=== PATIENT | male | born 1965 | race Caucasian/White ===

== ENCOUNTER 2020-04-19 13:29 | Inpatient (IN) | payer OTHER ==
[~2020-04-19] VITALS: Ht 177.8 cm; Wt 100.5 kg
[2020-04-19 15:24] VITALS: BP 162/93
--- NOTE | 2020-04-19 15:24 | NUR ---
54 year old MALE admitted to room # 407 BED 2 for stabilization. Reports an addiction to COCAINE AND CRACK last used 18 hours prior to admission. Compliant with admission procedure. Patient denies any anxiety, but is unable to sit still, taps toes to floor continuously, looks about room, unable to focus eyes on nurse during interview. See assessment forms for additional information about patient status. YARY ALCARAZN, RN
--- NOTE | 2020-04-19 15:44 | NUR ---
PATIENT MEETS [facility]. CIWA=17, CINA=15. PATIENT IS GOING TO FOLLOW UP WITH [facility] FOR HIS AFTERCARE PLAN. CAITLYN CASTRO B.A. CHILDCARE AIDE
[2020-04-19 16:00] VITALS: BP 162/90
[2020-04-19] MEDS ORDERED: Nicorette Gum4 MG PO (16:10)
[2020-04-19] MEDS ORDERED: COZAAR50 M1 PO (16:10)
[2020-04-19] MEDS ORDERED: NOVOLIN R100 UNIT/1 SQ (16:11)
[2020-04-19] MEDS ORDERED: METFORMIN HYD1000 MG PO (16:12)
[2020-04-19 16:52] LABS: BASO % 0.4 % (0.0-1.0); EOS # 0.1 10*3/uL (0.0-0.4); HEMATOCRIT 46.1 % (42.0-52.0); LYMPH # 3.5 10*3/uL (1.3-4.4); LYMPH % 44.7 % (27.0-41.0); MEAN CELL VOLUME 86.3 fl (80.0-94.0); MEAN CORPUSCULAR HGB 28.5 pg (27.0-31.0); MEAN PLATELET VOLUME 10.9 fl (9.6-12.3); MONO # 0.5 10*3/uL (0.1-1.0); MONO % 6.5 % (3.0-9.0); NEUT # 3.7 10*3/uL (2.3-7.9); NEUT % 47.3 % (47.0-73.0); PLATELET COUNT AUTOMATED 177 10*3/uL (130-400); RED BLOOD COUNT 5.34 10*6/uL (4.50-5.90); RED CELL DISTRI WIDTH 12.5 % (0-14.5); WHITE BLOOD COUNT 7.8 10*3/uL (4.8-10.8)
[2020-04-19 17:01] LABS: INTERNATIONAL NORM RATIO 1.1 (2.0-3.5)
[2020-04-19 17:12] LABS: ALBUMIN 3.9 gm/dl (3.1-4.5); ALKALINE PHOSPHATASE 76 U/L (45-117); BUN 11 mg/dl (7-24); CHLORIDE 103 mmol/L (98-107); CREATININE 0.82 mg/dL (0.70-1.30); POTASSIUM 3.3 mmol/L (3.5-5.1); SGOT/AST 18 IU/L (3-35); SGPT/ALT 34 U/L (12-78); SODIUM 135 mmol/L (136-145); TOTAL PROTEIN 7.3 gm/dL (6.4-8.2)
[2020-04-19 17:14] LABS: ETHYL ALCOHOL < 3.0 mg/dl (<3)
[2020-04-19 17:34] LABS: BILIRUBIN Negative (Negative); BLOOD Negative (Negative); CLARITY Clear (Clear); COLOR Yellow (Yellow); GLUCOSE 1+ (Negative); KETONE 1+ (Negative); LEUKO ESTERASE Negative (Negative); NITRITE Negative (Negative); PH 6.5 (4.5-8.0); SPECIFIC GRAVITY 1.015 (1.001-1.030)
[2020-04-19 17:43] LABS: URINE AMPHETAMINES > 1000 (1000ng/ml); URINE BARBITURATES < 200 (200ng/ml); URINE BENZODIAZEPINES < 200 (200ng/ml); URINE CANNABINOIDS (THC) < 50 (50ng/ml); URINE COCAINE > 300 (300ng/ml); URINE METHADONE < 300 (300ng/ml); URINE OPIATES < 300 (300ng/ml)
[2020-04-19 17:46] LABS: URINE PHENCYCLIDINE < 25 (25ng/ml)
[2020-04-19 17:47] LABS: CALCIUM OXALATE CRYSTALS TRACE; WBC 0-2 wbc/hpf (0-5)
[2020-04-19 17:48] LABS: MUCOUS TRACE
--- NOTE | 2020-04-19 19:19 | NUR ---
RECIEVED REPORT FROM PREVIOUS RN.
--- NOTE | 2020-04-19 19:28 | NUR ---
ASSUMED CARE OF PATIENT. PATIENT IS AAOX3 RESTING IN BED WITH EASY AND REGULAR RESPERS ON ROOM AIR. ASSESSMENT IS COMPLETE WITH NO C/O OR S/S OF DISTRESS NOTED AT THIS TIME. PRN NICOTINE GUM PROVIDED PER PATIENT REQUEST. BED IS LOW, LOCKED, AND CALL LIGHT IS WITHIN REACH. WILL CONTNINUE TO MONITOR, SEE INTERVENTIONS.
[2020-04-19 20:00] VITALS: BP 142/78
[2020-04-20] VITALS: BP 149/86
--- NOTE | 2020-04-20 07:00 | NUR ---
ARRIVED ON SHIFT,REPORT RECEIVED FROM OFFGOING NURSE, ASSUMED CARE OF PATIENT.
--- NOTE | 2020-04-20 07:30 | NUR ---
INTRODUCED SELF YE PATIENT, BED IN LOW POSITION, WHEEL LOCKS ENGAGED, SIDE RAILS UP X 2 FOR TURNING AND REPOSITIONING, CALL LIGHT WITHIN REACH, NO NEEDS VOICED AT THIS TIME, WHITE BOARD UPDATED.
--- NOTE | 2020-04-20 07:57 | NUR ---
Shift chart check completed.
[2020-04-20 12:00] VITALS: BP 127/77
--- NOTE | 2020-04-20 12:22 | NUR ---
[place] STAFF IN TO SEE PATIENT. [facility] WILL BE PROVIDING TRASNPORTATION FOR PATIENT ON FRIDAY, April POST DISCHARGE. CAITLYN CASTRO B.A. FABRIC SOURCER
[2020-04-20 16:00] VITALS: BP 104/74
--- NOTE | 2020-04-20 19:20 | NUR ---
REPORT OBTAINED FROM PREVIOUS RN. ASSUMED CARE OF PATIENT.
[2020-04-20 20:00] VITALS: BP 127/76
--- NOTE | 2020-04-20 21:00 | NUR ---
PATIENT IS RESTING IN BED, RESPERS EASY AND REGULAR. ASSESSMENT IS COMPLETE, WITH NO S/S OF DISTRESS NOTED AT THIS TIME. BED IS LOW, LOCKED, AND CALL LIGHT IS WITHIN REACH. BEDSIDE GLUCOSE 314. PATIENT REQUESTING ATIVAN TO HELP THEM SLEEP. FINE TREMORS NOTED. WILL CONTINUE TO MONITOR, SEE INTERVENTIONS.
--- NOTE | 2020-04-20 21:11 | NUR ---
PRN ATIVAN GIVEN FOR FINE TREMORS AND INSOMNIA. CALL LIGHT IS WITHIN REACH, WILL MONITOR EFFECT.
--- NOTE | 2020-04-20 23:24 | NUR ---
CHART CHECK COMPLETE.
[2020-04-21] VITALS: BP 120/70
--- NOTE | 2020-04-21 03:31 | NUR ---
PATIENT IS AWAKE. 0400 LIBRIUM GIVEN. PATIENT REQUESTING SLEEPING MEDICATION. TREMORS NOTED TO HANDS. PRN ATIVAN GIVEN. PATIENT STATED "WHEN I GET THAT ATIVAN STUFF I SLEEP REALLY GOOD. LAST NIGHT WHEN I GOT IT, IT WAS THE FIRST DREAM I HAD IN MONTHS THAT WASNT ABOUT CRACK." INFORMED PATIENT THAT MEDICATION IS ONLY TO BE USED FOR DT'S. UNDERSTANDING VERBALIZED. CALL LIGHT IS WITHIN REACH, WILL MONITOR EFFECT.
--- NOTE | 2020-04-21 04:05 | NUR ---
PATIENT REQUESTING SLEEPING MEDICATIONS. PRN TRAZADONE GIVEN. WILL MONITOR EFFECT. CALL LIGHT IS WITHIN REACH.
--- NOTE | 2020-04-21 04:20 | NUR ---
PATIENT SEEMS DISORIENTED ASKING QUESTIONS IN REGARDS TO ATIVAN. UPDATED PATIENT ON EVENTS OF TONIGHT AND REORIENTED. CALL LIGHT IS WITHIN REACH, WILL CONTINUE TO MONITOR.
--- NOTE | 2020-04-21 05:01 | NUR ---
SLEEPING. RESPERS EASY AND REGULAR. CALL LIGHT IS WITHIN REACH.
--- NOTE | 2020-04-21 07:00 | NUR ---
ARRIVED ON SHIFT, REPORT RECEIVED FROM OFFGOING NURSE, ASSUMED CARE OF PATIENT.
--- NOTE | 2020-04-21 07:15 | NUR ---
INTRODUCED SELF TO PATIENT, BED IN LOW POSITION, WITH WHEEL LOCKS ENGAGED, SIDE RAILS UP X 2 FOR TURNING AND REPOSITIONING, CALL LIGHT WITHIN REACH, NO NEEDS VOICED AT THIS TIME, WHITE BOARD UPDATED.
[2020-04-21 08:00] VITALS: BP 102/60
--- NOTE | 2020-04-21 08:00 | NUR ---
Shift chart check completed.
[2020-04-21 12:00] VITALS: BP 110/65
--- NOTE | 2020-04-21 14:59 | NUR ---
MACHINE I COREMAKER IN TO SEE PATIENT. PATIENT STATED HE HAD A COURT DATE TODAY AND WOULD LIKE TO HAVE SOMETHING FAXED TO THE COURTS FOR PROOF THAT HE HAS BEEN IN OUR FACILITY. HE ALSO WANTED THEM TO BE NOTIFIED OF HIM BEING UNAVAILABLE FOR THE NEXT 30DAYS. FLYNN SPOKE WITH JIMMY SHELDON. FLYNN PROVIDED HER WITH FAX NUMBER [phone]. THE COURTS PHONE NUMBER IS [phone]. FOR TICKET #[id number].
[2020-04-21 16:00] VITALS: BP 123/75
--- NOTE | 2020-04-21 16:28 | NUR ---
[place] STAFF IN TO SEE PATIENT. PATIENT WILL BE PICKED UP TOMORROW POST DISCHARGE TO [facility]. PATIENT AGREES AND UNDERSTANDS HIS AFTERCARE PLAN. CAITLYN CASTRO B.A. BROACHING MACHINE OPERATOR
[2020-04-21 20:00] VITALS: BP 112/70
--- NOTE | 2020-04-21 20:00 | NUR ---
Neurological: awake,alert,oriented Respiratory: cough Breath sounds: clear Cough: hacking Cardiovascular: no problem Gastrointestinal: soft Genito/Urinary: no problem Musculoskeketal: AMBULATORY STANISLAV MUSE
[2020-04-22] VITALS: BP 105/64
--- NOTE | 2020-04-22 | NUR ---
RESTING QUIETLY IN BED WITH EYES CLOSED. RESPONDS TO VERBAL STIMULI. NO C/O VOICED. CALL IN REACH.
[2020-04-22 04:00] VITALS: BP 108/68
[2020-04-22 05:58] LABS: CREATININE 0.93 mg/dL (0.70-1.30)
[2020-04-22 06:01] LABS: BASO % 0.5 % (0.0-1.0); EOS # 0.2 10*3/uL (0.0-0.4); EOS % 2.1 % (1.0-4.0); HEMATOCRIT 46.6 % (42.0-52.0); LYMPH # 3.6 10*3/uL (1.3-4.4); LYMPH % 43.5 % (27.0-41.0); MEAN CORPUSCULAR HGB 29.2 pg (27.0-31.0); MEAN CORPUSCULAR HGB CONC 32.4 g/dl (33.0-37.0); MEAN PLATELET VOLUME 11.9 fl (9.6-12.3); MONO # 0.5 10*3/uL (0.1-1.0); MONO % 6.3 % (3.0-9.0); NEUT # 3.9 10*3/uL (2.3-7.9); NEUT % 47.4 % (47.0-73.0); PLATELET COUNT AUTOMATED 168 10*3/uL (130-400); RED BLOOD COUNT 5.18 10*6/uL (4.50-5.90); RED CELL DISTRI WIDTH 12.7 % (0-14.5); WHITE BLOOD COUNT 8.3 10*3/uL (4.8-10.8)
[2020-04-22 08:00] VITALS: BP 117/64
--- NOTE | 2020-04-22 10:59 | NUR ---
PATIENT DISCHARGED TO [facility].
== END 2020-04-22 11:00 | DRG 774 ==
LOC: 4E 13:29
PROVIDERS: Student in an Organized Health Care Education/Training Program; ADMIT Family Medicine; ATTEND Family Medicine
DX: F10.230 Alcohol dependence with withdrawal, uncomplicated (principal); F41.9 Anxiety disorder, unspecified; E87.1 Hypo-osmolality and hyponatremia; F14.10 Cocaine abuse, uncomplicated; F19.90 Other psychoactive substance use, unspecified, uncomplicated; E66.9 Obesity, unspecified; F32.5 Major depressive disorder, single episode, in full remission; E87.6 Hypokalemia; E11.65 Type 2 diabetes mellitus with hyperglycemia; E83.51 Hypocalcemia; F17.210 Nicotine dependence, cigarettes, uncomplicated; Z20.828 Contact with and (suspected) exposure to other viral communicable diseases; Z71.6 Tobacco abuse counseling; Z84.1 Family history of disorders of kidney and ureter; Z82.49 Family history of ischemic heart disease and other diseases of the circulatory system; Z78.9 Other specified health status; Z68.31 Body mass index [BMI] 31.0-31.9, adult

== ENCOUNTER 2020-08-02 17:57 | Inpatient (IN) | payer OTHER ==
[~2020-08-02] VITALS: Ht 177.8 cm; Wt 96.6 kg
[~2020-08-02 17:57] MED LIST: COZAAR50 M1 PO; METFORMIN HYD1000 MG PO; NOVOLIN R100 UNIT/1 SQ; Nicorette Gum4 MG PO
[2020-08-02 18:10] VITALS: BP 145/81
[2020-08-02 18:56] LABS: BASO % 0.4 % (0.0-1.0); EOS % 0.3 % (1.0-4.0); HEMATOCRIT 49.1 % (42.0-52.0); LYMPH % 32.4 % (27.0-41.0); MEAN CELL VOLUME 87.2 fl (80.0-94.0); MEAN CORPUSCULAR HGB 28.8 pg (27.0-31.0); MONO # 0.4 10*3/uL (0.1-1.0); MONO % 4.5 % (3.0-9.0); NEUT # 5.7 10*3/uL (2.3-7.9); NEUT % 62.1 % (47.0-73.0); PLATELET COUNT AUTOMATED 186 10*3/uL (130-400); RED BLOOD COUNT 5.63 10*6/uL (4.50-5.90); WHITE BLOOD COUNT 9.2 10*3/uL (4.8-10.8)
[2020-08-02 19:04] LABS: BILIRUBIN Negative (Negative); BLOOD Negative (Negative); CLARITY Clear (Clear); COLOR Yellow (Yellow); GLUCOSE 3+ (Negative); KETONE 1+ (Negative); LEUKO ESTERASE Negative (Negative); NITRITE Negative (Negative); PH 6.5 (4.5-8.0); SPECIFIC GRAVITY >= 1.030 (1.001-1.030); UROBILINOGEN 0.2 E.U./dl (0.0-1.0)
[2020-08-02 19:08] LABS: URINE AMPHETAMINES < 1000 (1000ng/ml); URINE BARBITURATES < 200 (200ng/ml); URINE BENZODIAZEPINES < 200 (200ng/ml); URINE CANNABINOIDS (THC) < 50 (50ng/ml); URINE COCAINE > 300 (300ng/ml); URINE METHADONE < 300 (300ng/ml); URINE OPIATES < 300 (300ng/ml)
[2020-08-02 19:13] LABS: URINE PHENCYCLIDINE < 25 (25ng/ml)
[2020-08-02 19:14] LABS: ACT PARTIAL THROMBO TIME 25.2 SECONDS (20.0-32.1)
[2020-08-02 19:16] LABS: ALBUMIN 3.9 gm/dl (3.1-4.5); ALKALINE PHOSPHATASE 86 U/L (45-117); BUN 19 mg/dl (7-24); CHLORIDE 102 mmol/L (98-107); CREATININE 1.05 mg/dL (0.70-1.30); LIPASE 125 U/L (73-393); SGOT/AST 17 IU/L (3-35); SGPT/ALT 40 U/L (12-78); SODIUM 133 mmol/L (136-145); TOTAL PROTEIN 7.5 gm/dL (6.4-8.2)
[2020-08-02 19:17] LABS: ETHYL ALCOHOL < 3.0 mg/dl (<3); TROPONIN I < 0.015 ng/ml (<0.045)
[2020-08-02 19:18] LABS: BACTERIA TRACE; EPITHELIAL CELLS 0-2; RBC 0-2 rbc/hpf (0-2); WBC 0-2 wbc/hpf (0-5)
[2020-08-02 22:29] VITALS: BP 107/62
[2020-08-03] VITALS: BP 107/56
[2020-08-03] MEDS ORDERED: GLIMEPIRIDE4 M1 PO (02:53)
[2020-08-03 08:00] VITALS: BP 119/83
[2020-08-03 12:00] VITALS: BP 139/78
[2020-08-03 16:00] VITALS: BP 119/77
[2020-08-03 20:00] VITALS: BP 120/73
[2020-08-04] VITALS: BP 114/57
[2020-08-04 06:43] LABS: BASO % 0.6 % (0.0-1.0); EOS # 0.1 10*3/uL (0.0-0.4); EOS % 1.8 % (1.0-4.0); HEMATOCRIT 49.5 % (42.0-52.0); LYMPH # 2.9 10*3/uL (1.3-4.4); LYMPH % 43.4 % (27.0-41.0); MEAN CELL VOLUME 88.6 fl (80.0-94.0); MEAN CORPUSCULAR HGB 28.4 pg (27.0-31.0); MEAN CORPUSCULAR HGB CONC 32.1 g/dl (33.0-37.0); MEAN PLATELET VOLUME 11.2 fl (9.6-12.3); MONO # 0.5 10*3/uL (0.1-1.0); MONO % 6.8 % (3.0-9.0); NEUT # 3.2 10*3/uL (2.3-7.9); NEUT % 47.1 % (47.0-73.0); PLATELET COUNT AUTOMATED 170 10*3/uL (130-400); RED BLOOD COUNT 5.59 10*6/uL (4.50-5.90); RED CELL DISTRI WIDTH 11.9 % (0-14.5); WHITE BLOOD COUNT 6.8 10*3/uL (4.8-10.8)
[2020-08-04 06:56] LABS: BUN 18 mg/dl (7-24); CHLORIDE 110 mmol/L (98-107); CREATININE 0.85 mg/dL (0.70-1.30); POTASSIUM 3.9 mmol/L (3.5-5.1); SODIUM 140 mmol/L (136-145)
[2020-08-04 08:00] VITALS: BP 113/60
[2020-08-04 12:00] VITALS: BP 126/72
[2020-08-04 16:00] VITALS: BP 122/72
[2020-08-04 20:00] VITALS: BP 130/73
[2020-08-05] VITALS: BP 131/69
[2020-08-05 08:00] VITALS: BP 128/73
[2020-08-05] MEDS ORDERED: GLIMEPIRIDE4 M1 PO (11:36)
[2020-08-05] MEDS ORDERED: METFORMIN HYD1000 MG PO (11:36)
== END 2020-08-05 13:08 | disposition home or self-care (01) | DRG 774 ==
LOC: ED 17:57 → EDHOLD 18:33 → 5E 18:33
PROVIDERS: Emergency Medicine; Internal Medicine; ADMIT Family Medicine; ATTEND Family Medicine
DX: F10.230 Alcohol dependence with withdrawal, uncomplicated (principal); E87.2 Acidosis; E87.1 Hypo-osmolality and hyponatremia; F32.5 Major depressive disorder, single episode, in full remission; R00.0 Tachycardia, unspecified; R79.82 Elevated C-reactive protein (CRP); F41.9 Anxiety disorder, unspecified; E11.65 Type 2 diabetes mellitus with hyperglycemia; F14.13 Cocaine abuse, unspecified with withdrawal; E66.9 Obesity, unspecified; F17.210 Nicotine dependence, cigarettes, uncomplicated; E11.42 Type 2 diabetes mellitus with diabetic polyneuropathy; Z79.4 Long term (current) use of insulin; Z71.6 Tobacco abuse counseling; Z84.1 Family history of disorders of kidney and ureter; Z84.89 Family history of other specified conditions; Z68.30 Body mass index [BMI] 30.0-30.9, adult

== ENCOUNTER 2020-09-21 12:03 | Inpatient (IN) | payer OTHER ==
[~2020-09-21] VITALS: Ht 177.8 cm; Wt 99.5 kg
[~2020-09-21 12:03] MED LIST changes: +GLIMEPIRIDE4 M1 PO
[2020-09-21 12:40] VITALS: BP 138/75; BP 138/76
[2020-09-21 13:19] LABS: BASO % 0.5 % (0.0-1.0); EOS # 0.1 10*3/uL (0.0-0.4); EOS % 1.6 % (1.0-4.0); HEMATOCRIT 44.4 % (42.0-52.0); LYMPH # 3.3 10*3/uL (1.3-4.4); LYMPH % 41.3 % (27.0-41.0); MEAN CELL VOLUME 88.1 fl (80.0-94.0); MEAN CORPUSCULAR HGB CONC 32.9 g/dl (33.0-37.0); MEAN PLATELET VOLUME 10.8 fl (9.6-12.3); MONO # 0.5 10*3/uL (0.1-1.0); MONO % 6.6 % (3.0-9.0); NEUT % 49.7 % (47.0-73.0); PLATELET COUNT AUTOMATED 195 10*3/uL (130-400); RED BLOOD COUNT 5.04 10*6/uL (4.50-5.90); RED CELL DISTRI WIDTH 12.9 % (0-14.5)
[2020-09-21 13:34] LABS: ALBUMIN 3.5 gm/dl (3.1-4.5); ALKALINE PHOSPHATASE 67 U/L (45-117); BUN 19 mg/dl (7-24); CHLORIDE 110 mmol/L (98-107); CREATININE 0.81 mg/dL (0.70-1.30); ETHYL ALCOHOL < 3.0 mg/dl (<3); SGOT/AST 14 IU/L (3-35); SGPT/ALT 39 U/L (12-78); SODIUM 143 mmol/L (136-145); TOTAL PROTEIN 6.7 gm/dL (6.4-8.2)
[2020-09-21 13:38] LABS: BILIRUBIN Negative (Negative); BLOOD Negative (Negative); CLARITY Clear (Clear); COLOR Yellow (Yellow); GLUCOSE 1+ (Negative); KETONE Trace (Negative); LEUKO ESTERASE Negative (Negative); NITRITE Negative (Negative); SPECIFIC GRAVITY 1.025 (1.001-1.030); UROBILINOGEN 0.2 E.U./dl (0.0-1.0)
[2020-09-21 13:47] LABS: RBC 0-2 rbc/hpf (0-2); URINE AMPHETAMINES < 1000 (1000ng/ml); URINE BARBITURATES < 200 (200ng/ml); URINE BENZODIAZEPINES < 200 (200ng/ml); URINE CANNABINOIDS (THC) < 50 (50ng/ml); URINE COCAINE > 300 (300ng/ml); URINE METHADONE < 300 (300ng/ml); URINE OPIATES < 300 (300ng/ml)
[2020-09-21 13:48] LABS: URINE PHENCYCLIDINE < 25 (25ng/ml)
[2020-09-21 16:00] VITALS: BP 139/77
[2020-09-21 20:00] VITALS: BP 125/65
[2020-09-22] VITALS: BP 111/68
[2020-09-22 08:00] VITALS: BP 124/82
[2020-09-22 12:00] VITALS: BP 126/72
[2020-09-22 16:00] VITALS: BP 122/76
[2020-09-22 20:00] VITALS: BP 128/77
[2020-09-23] VITALS: BP 110/54
[2020-09-23 06:46] LABS: BASO # 0.1 10*3/uL (0.0-0.1); BASO % 0.7 % (0.0-1.0); EOS # 0.2 10*3/uL (0.0-0.4); EOS % 2.3 % (1.0-4.0); HEMATOCRIT 46.9 % (42.0-52.0); LYMPH # 2.9 10*3/uL (1.3-4.4); LYMPH % 39.3 % (27.0-41.0); MEAN CORPUSCULAR HGB 28.7 pg (27.0-31.0); MEAN CORPUSCULAR HGB CONC 32.6 g/dl (33.0-37.0); MEAN PLATELET VOLUME 10.9 fl (9.6-12.3); MONO # 0.6 10*3/uL (0.1-1.0); MONO % 7.9 % (3.0-9.0); NEUT # 3.6 10*3/uL (2.3-7.9); NEUT % 49.5 % (47.0-73.0); PLATELET COUNT AUTOMATED 192 10*3/uL (130-400); RED BLOOD COUNT 5.33 10*6/uL (4.50-5.90); RED CELL DISTRI WIDTH 12.6 % (0-14.5); WHITE BLOOD COUNT 7.3 10*3/uL (4.8-10.8)
[2020-09-23 08:00] VITALS: BP 123/98
[2020-09-23 12:00] VITALS: BP 128/80
[2020-09-23 16:00] VITALS: BP 128/73
[2020-09-23 20:00] VITALS: BP 128/78
[2020-09-24] VITALS: BP 128/86
[2020-09-24 08:00] VITALS: BP 127/90
== END 2020-09-24 13:55 | disposition home or self-care (01) | DRG 774 ==
LOC: 5E 12:03
PROVIDERS: Registered Nurse; ADMIT Student in an Organized Health Care Education/Training Program; ATTEND Student in an Organized Health Care Education/Training Program
DX: F10.239 Alcohol dependence with withdrawal, unspecified (principal); F14.10 Cocaine abuse, uncomplicated; F41.9 Anxiety disorder, unspecified; F32.9 Major depressive disorder, single episode, unspecified; E11.9 Type 2 diabetes mellitus without complications; F17.210 Nicotine dependence, cigarettes, uncomplicated; Z71.6 Tobacco abuse counseling; Z79.84 Long term (current) use of oral hypoglycemic drugs; Z79.899 Other long term (current) drug therapy